=== PATIENT | female | born 1955 | race Caucasian/White ===

== ENCOUNTER → 2017-09-08 | Outpatient (CLI) | payer MEDICARE, BC ==
--- NOTE | 2017-09-08 15:45 | 2DMMODE ---
[place] [address] 2 D/M-MODE ECHOCARDIOGRAM Name: SERGIO ENCARNACION Room: [facility]#: [id number] Admission: 09/08/17 Attend Phys: Sharda Miller Discharge: Date of : 53 Date of Service: 09/08/17 1544 Report #: [id number] THIS REPORT FOR: //name// APPROVED REPORT Study performed: 09/08/2017 14:38:25 EXAM: Comprehensive 2D, Doppler, and color-flow Echocardiogram Patient Location: Out-Patient Status: routine BSA: 1.64 HR: 95 bpm BP: 120/70 mmHg Other Information Study Quality: Fair Indications Murmur 2D Dimensions LVEF(%): 50.74 (>50%) IVSd: 11.79 (7-11mm) LVOT Diam: 19.86 (18-24mm) LVDd: 38.49 mm PWd: 9.19 (7-11mm) Ascending Ao: 28.94 (22-36mm) LVDs: 28.72 (25-40mm) Aortic Root: 28.00 mm [place]'s LVEF: 50.74 % Volumes Left Atrial Volume (Systole) LA ESV Index: 19.30 mL/m2 Aortic Valve AoV Peak Tyrone.: 1.74 m/s AO Peak Gr.: 12.05 mmHg LVOT Max P.97 mmHg AO Mean Gr.: 6.35 mmHg LVOT Mean P.80 mmHg LVOT Max V: 1.58 m/s AO V2 VTI: 26.51 cm LVOT Mean V: 0.87 m/s CULLEN (VTI): 2.66 cm2 LVOT V1 VTI: 22.77 cm Mitral Valve E/A Ratio: 0.87 MV Decel. Time: 198.[place] [address] 2 D/M-MODE ECHOCARDIOGRAM Name: SERGIO ENCARNACION Room: [facility]#: [id number] Admission: 09/08/17 Attend Phys: Sharda Miller Discharge: Date of : 53 Date of Service: 09/08/17 1544 Report #: [id number] MV E Max Tyrone.: 0.64 m/s MV PHT: 57.68 ms MVA (PHT): 3.81 cm2 TDI E/Lateral E': 6.40 E/Medial E': 9.14 Medial E' Tyrone.: 0.07 m/s Lateral E' Tyrone.: 0.10 m/s Pulmonary Valve PV Peak Tyrone.: 1.63 m/s PV Peak Gr.: 10.61 mmHg Tricuspid Valve RAP Estimate: 5.00 mmHg TR Peak Gr.: 43.78 mmHg RVSP: 48.78 mmHg PA Pressure: 48.78 mmHg Left Ventricle The left ventricle is normal size. There is normal LV segmental wall motion. There is normal left ventricular wall thickness. Left ventricular systolic function is normal. The left ventricular ejection fraction is within the normal range. LVEF is 55-60%. The left ventricular diastolic function is normal. Right Ventricle Right ventricle is mildly dilated. The right ventricular systolic function is normal. Atria The left atrium size is normal. The right atrium size is normal. Aortic Valve The aortic valve is normal in structure. No aortic regurgitation is present. There is no aortic valvular stenosis. Mitral Valve The mitral valve is normal in structure. There is no mitral valve regurgitation noted. No evidence of mitral valve stenosis. Tricuspid Valve The tricuspid valve is normal in structure. Mild tricuspid regurgitation. estimated pa pressure 60 mm Hg Pulmonic Valve The pulmonary valve is normal in structure. There [place] [address] 2 D/M-MODE ECHOCARDIOGRAM Name: SERGIO ENCARNACION Room: [facility]#: [id number] Admission: 09/08/17 Attend Phys: Sharda Miller Discharge: Date of : 53 Date of Service: 09/08/17 1544 Report #: [id number] valvular regurgitation. Great Vessels The aortic root is normal in size. IVC is normal in size and collapses with >50% inspiration Pericardium There is no pericardial effusion. <Conclusion> LVEF is 55-60%. Right ventricle is mildly dilated. Mild tricuspid regurgitation. estimated pa pressure 60 mm Hg <ELECTRONICALLY SIGNED> By: Jayme Collier MD, FACC 09/08/17 1544 1544 1544 Jayme Collier MD, FACC /INF
== END ==
LOC: M.ULTRA 14:02 → M.CRD 15:00
DX: I07.1 Rheumatic tricuspid insufficiency (principal); E01.0 Iodine-deficiency related diffuse (endemic) goiter

== ENCOUNTER → 2017-09-26 | Outpatient (CLI) | payer MEDICARE, BC ==
[2017-09-26 12:34] LABS: CREATININE 0.5 mg/dL (0.6-1.3)
== END ==
LOC: M.LAB 09-25 12:00 → M.CT 09-25 13:00 → M.LAB 12:00
PROVIDERS: Nurse Practitioner Family
DX: R10.9 Unspecified abdominal pain (principal); R79.89 Other specified abnormal findings of blood chemistry

== ENCOUNTER 2018-11-18 16:52 | Inpatient (IN) | payer MEDICARE, BC ==
[~2018-11-18] VITALS: Ht 167.6 cm; Wt 91.9 kg
[2018-11-18 16:52] VITALS: BP 136/85
[2018-11-18] MEDS ORDERED: ZYPREXA5 MG PO (16:58)
[2018-11-18] MEDS ORDERED: VITAMIN D5000 UNIT PO (16:59)
[2018-11-18] MEDS ORDERED: BIPOLAR MEDICATION (16:59)
[2018-11-18] MEDS ORDERED: [UNRECOGNIZED DRUG - REMARK] (16:59)
[2018-11-18 17:53] LABS: ABSOLUTE LYMPHOCYTES 1.5 thou/uL (0.8-5.3); ABSOLUTE MONOCYTES 0.6 thou/uL (0.0-1.2); ABSOLUTE NEUTROPHILS 3.1 thou/uL (1.6-8.1); BASOPHILS 0.4 %; EOSINOPHILS 0.3 %; HEMATOCRIT 36.2 % (37.0-47.0); HEMOGLOBIN 11.6 gm/dL (12.0-15.0); LYMPHOCYTES 27.9 %; MCH 23.2 pg (26.0-34.0); MCHC 32.2 g/dL (28.0-37.0); MCV 72.1 fL (80.0-100.0); MONOCYTES 11.1 %; MPV 8.7 fl. (7.2-11.1); NUCLEATED RBCS 0 /100WBC; PLATELET COUNT* 119 thou/uL (150-400); POLYS 60.3 %; RBC 5.02 mil/uL (4.20-5.00); RDW-CV 15.7 % (10.5-14.5); WBC 5.2 thou/uL (4.0-11.0)
[2018-11-18 17:59] LABS: ANION GAP 15 mmol/L (7-16); BUN 14 mg/dL (7-18); CALCIUM 8.4 mg/dL (8.5-10.1); CHLORIDE 107 mmol/L (98-107); CO2 23 mmol/L (21-32); GLUCOSE 98 mg/dL (70-99); POTASSIUM 3.3 mmol/L (3.5-5.1); SODIUM 145 mmol/L (136-145)
[2018-11-18 18:03] LABS: APTT 28.4 Seconds (25.0-31.3); INR 1.1; PROTIME 11.3 Seconds (9.20-11.50)
[2018-11-18 18:04] LABS: BE -0.6 mmol/L (-2 to +3); PCO2 30.9 mmHg (35.0-45.0); PO2 97.1 mmHg (75.0-100.0); pH 7.473 (7.340-7.450)
[2018-11-18 18:10] LABS: URINE BLOOD 1+ (Negative); URINE CLARITY CLEAR; URINE COLOR DARK YELLOW; URINE GLUCOSE-RANDOM NEGATIVE (Negative); URINE KETONES 2+ (Negative); URINE LEUKOCYTES-REFLEX NEGATIVE (Negative); URINE NITRITE-REFLEX NEGATIVE (Negative); URINE PROTEIN 1+ (Negative); URINE SPECIFIC GRAVITY >= 1.030 (1.005-1.030)
[2018-11-18 18:12] LABS: ICTOTEST (BILI CONFIRMATORY) Negative (Negative); URINE BILIRUBIN 2+ (Negative)
[2018-11-18 18:15] LABS: ALBUMIN 3.2 g/dL (3.4-5.0); ALKALINE PHOSPHATASE 92 U/L (46-116); CK-MB MASS 103.6 ng/mL (<0.5-3.6); MAGNESIUM 1.7 mg/dL (1.8-2.4); SGOT 180 U/L (15-37); SGPT 44 U/L (30-65); TOTAL BILIRUBIN 0.9 mg/dL (<0.1-1.0); TOTAL PROTEIN 6.2 g/dL (6.4-8.2); TROPONIN-I LEVEL <0.06 ng/mL (<0.06)
[2018-11-18 18:33] LABS: MUCUS 4-6 Moderate strn/LPF (None Seen)
[2018-11-18 18:34] LABS: HYALINE CASTS 4-10 Moderate /LPF (None Seen); SQUAMOUS 0-3 Few /LPF (0-3); URINE RBC 0-2 Rare /HPF (0-2); URINE WBC-REFLEX 0-5 Rare /HPF (0-5)
[2018-11-18 18:35] LABS: BACTERIA-REFLEX 1-9 Few /HPF (None Seen); CRYSTALS None Seen /LPF (None Seen)
[2018-11-18] MEDS ORDERED: METHIMAZOLE5 MG PO (18:42)
[2018-11-18] MEDS ORDERED: XANAX 0.25 MG0.25 MG PO (18:43)
[2018-11-18] MEDS ORDERED: DEPAKOTE500 MG PO (18:43)
[2018-11-18] MEDS ORDERED: CLONAZEPAM 1 MG1 M1 PO (18:43)
[2018-11-18] MEDS ORDERED: ZYPREXA20 MG PO (18:43)
[2018-11-18] MEDS ORDERED: VITAMIN D35000 UNI1 PO (18:44)
--- NOTE | 2018-11-18 20:18 | NUR ---
IV WAS STARTED PER DR FERGUSON; IV ABOVE R AC, PT WITH L UPPER ARM; MANAGER MOBILITY REFUSE TO USE IV FOR CTA, WILL CONTACT DR MURCIA
[2018-11-18 21:15] VITALS: BP 116/68
[2018-11-19 04:00] VITALS: BP 113/58
[2018-11-19 04:49] LABS: ABSOLUTE EOSINOPHILS 0.2 thou/uL (0.0-0.7); ABSOLUTE LYMPHOCYTES 2.3 thou/uL (0.8-5.3); ABSOLUTE MONOCYTES 0.6 thou/uL (0.0-1.2); ABSOLUTE NEUTROPHILS 2.4 thou/uL (1.6-8.1); BASOPHILS 0.3 %; HEMATOCRIT 31.8 % (37.0-47.0); HEMOGLOBIN 10.1 gm/dL (12.0-15.0); LYMPHOCYTES 41.7 %; MCH 22.8 pg (26.0-34.0); MCHC 31.7 g/dL (28.0-37.0); MCV 71.9 fL (80.0-100.0); MONOCYTES 10.2 %; MPV 8.4 fl. (7.2-11.1); NUCLEATED RBCS 0 /100WBC; PLATELET COUNT* 105 thou/uL (150-400); POLYS 44.8 %; RBC 4.42 mil/uL (4.20-5.00); RDW-CV 15.7 % (10.5-14.5); WBC 5.4 thou/uL (4.0-11.0)
[2018-11-19 05:02] LABS: CREATININE 0.7 mg/dL (0.6-1.3); POTASSIUM 3.6 mmol/L (3.5-5.1)
--- NOTE | 2018-11-19 07:04 | NUR ---
REPORT RECEVED FROM ASHLIE IN ED. PT ARRIVED TO ROOM @ 2135. A+O X 4. NURSING ASSESSMENT COMPLETE. PHOTOS OF INJURYS FROM FALL TAKEN AND PLACED IN CHART- MILD SCRAPES AND ABRASIONS. NO OPEN WOUNDS. GENERALIZED EDEMA NOTED IN FACE (AROUND O2 TUBING) OTHER AREAS. PT GIVEN JELLO AND ENSURE THIS MORNING. TYLENOL GIVEN X 2. ALL LIGHT IN REACH. HOURLY ROUNDING FOR SAFETY.
[2018-11-19 07:45] VITALS: BP 108/59
[2018-11-19 08:02] LABS: HYPOCHROMASIA 2+; MICROCYTES 2+; PLATELET ESTIMATE DECREASED
[2018-11-19 11:12] VITALS: BP 110/66
--- NOTE | 2018-11-19 11:48 | NUR ---
Nutrition: Pt assessed for pressure ulcer risk. No open wounds reported. 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 Rt elbow abrasions. Wt: 175#. Regular diet. RX: MVI. BG 106, albumin 3.2. No nutrition interventions needed at this time. Low risk.
--- NOTE | 2018-11-19 13:10 | NUR ---
INITIAL ASSESSMENT: Pt evaluated for d/c planning needs. Reviewed chart and spoke with nurse and pt. Pt lives alone and was independent with ADL's prior to admission to the hospital. Pt is alert and oriented. Pt said she has no DME and no oxygen at home. Pt said she had home health in the past, but does not recall name of company. Pt plans on returning home on d/c from hospital. Will await input from PT and OT re: recommendations for disposition.
--- NOTE | 2018-11-19 15:52 | EKG ---
[place] [address] ELECTROCARDIOGRAM REPORT Name: SERGIO ENCARNACION Room: [address] ADM IN M.R.#: [id number] Admission: 11/18/18 Attend Phys: Nicholas Dunbar MD Discharge: Date of : 53 Report #: [id number] THIS REPORT FOR: //name// [facility] ED Test Date: 2018-11-18 Test Time: 17:10:55 Pat Name: SERGIO ENCARNACION Department: Room: [facility] Gender: F Public Relations Representative: [place] : 1955 Requested By: Chloé Rose Order Number: [id number] MD: Richard Dumont Measurements Intervals [place] Rate: 94 P: 69 HI: 147 QRS: 40 QRSD: 105 T: -74 QT: 359 QTc: 449 Interpretive Statements Sinus rhythm Incomplete right bundle-branch block Nonspecific T abnormalities, diffuse leads No previous ECG available for comparison Electronically Signed On 11-19-2018 15:52:41 CDT by Richard Dumont [email or web address] <ELECTRONICALLY SIGNED> By: Richard Dumont MD, [facility] 11/19/18 1552 09 09 Richard Dumont MD, FAC /EPI
[2018-11-19 18:57] VITALS: BP 113/70
[2018-11-19 20:00] VITALS: BP 110/72
[2018-11-20] VITALS: BP 112/64
[2018-11-20 04:29] VITALS: BP 116/60
[2018-11-20 05:00] LABS: CREATININE 0.7 mg/dL (0.6-1.3); POTASSIUM 3.3 mmol/L (3.5-5.1)
[2018-11-20 08:00] VITALS: BP 122/71
[2018-11-20 09:40] LABS: HEMATOCRIT 29.9 % (37.0-47.0); HEMOGLOBIN 9.5 gm/dL (12.0-15.0); MCH 23.2 pg (26.0-34.0); MCHC 31.8 g/dL (28.0-37.0); MPV 9.4 fl. (7.2-11.1); RBC 4.09 mil/uL (4.20-5.00); RDW-CV 15.7 % (10.5-14.5)
[2018-11-20 12:00] VITALS: BP 127/88
--- NOTE | 2018-11-20 15:14 | NUR ---
CONTINUE TO FOLLOW, DR RECOMMENDING SNF. DISCUSSED WITH PT AND BROTHER OVER THE PHONE. CHOSE [facility] AND IF NOT THERE, TRY [facility]. ANTICIPATE DC IN 1-2 DAYS. CALLED AND FAXED REFERRAL TO [facility], AWAIT CALL BACK
[2018-11-20 16:17] VITALS: BP 120/72
--- NOTE | 2018-11-20 18:47 | NUR ---
PT VSS, NSR ON TELE. PT IS A&O X4, BUT HAS A FLAT AFFECT. PT IS HIGH FALL RISK DUE TO FALL AT HOME ASSOCIATED WITH EXTREME LOWER EXTREMITY WEAKNESS. PT AMBULATES IN ROOM WITHOUT COMPLICATION (STAND BY ASSIST). PT IS INCONTINENT OF BLADDER. GRAVES DISEASE IN HISTORY. TREMORS REPORTED BUT NOT OBSERVED TODAY. POSSESSIONS AND CALL LIGHT WITHIN REACH. PT SPEND MAJORITY OF THE DAY RELAXING IN CHAIR.
--- NOTE | 2018-11-20 19:07 | NUR ---
THIS RN HAS REVIEWED AND AGREES WITH THE ASSESSMENT AND CHARTING OF MATHIEU RO.
[2018-11-20 19:50] VITALS: BP 127/60
[2018-11-21] VITALS: BP 127/64
[2018-11-21 04:00] VITALS: BP 100/60
[2018-11-21 07:30] VITALS: BP 123/69
[2018-11-21] MEDS ORDERED: MELATONIN1 MG PO (10:00)
[2018-11-21] MEDS ORDERED: TYLENOL325 MG PO (10:00)
--- NOTE | 2018-11-21 10:00 | NUR ---
ORDERS RECEIVED FOR DC TO SNF. CALLED AND FAXED ORDERS TO [facility]. MET WITH PT AND CALLED BROTHER/SREE TO GIVE NUMBER AND ADDRESS OF FACILITY. SPOKE WITH THELMA/MAKENZIE, SHE ARRANGED W/C VAN FOR 1130-01. CHART COPIED AND RN GIVEN NUMBER FOR REPORT
[2018-11-21 10:01] VITALS: BP 123/69
--- NOTE | 2018-11-21 12:45 | NUR ---
RECEIVED DISCHARGE ORDERS PER DR ODELL. IV DISCONTINUED. RIVER CROSSING SUPERVISOR REMOVED. REPORT CALLED TO THE [facility]. ALL PATIENTS BELONGINGS ARE PACKED AND LEAVING WITH THE PATIENT. SHE IS LEAVING VIA WHEELCHAIR ACCOMPANIED BY WHEELCHAIR [facility]AN TRANSPORTATION. NO QUESTIONS/CONCERNS AT TIME OF DISCHARGE.
--- NOTE | 2018-11-27 09:32 | EEG ---
[address] [address] EEG STUDY REPORT Name: SERGIO ENCARNACION Room: [address]#: [id number] Admission: 11/18/18 Attend Phys: Nicholas Dunbar MD Discharge: 11/21/18 Date of : 53 Report #: [id number] THIS REPORT FOR: //name// CC: AJIT LIZANDRO Dunbar DATE OF SERVICE: 11/19/2018 This patient had an episode where she passed out. She was on the floor for a long period of time. EEG was done by placing the electrodes by standard 10-20 system of electrode placement. Both referential and sequential montages were used for recording. Background activity in this patient's EEG is about 9 Hz and 30 microvolts. There is a symmetrical activity. The patient became drowsy and that is associated with bilateral slowing and vertex sharp waves. Photic stimulation was unremarkable. Throughout the record, no active epileptiform activity was noticed. IMPRESSION: This patient's EEG demonstrates some intermixed slowing on both sides. That is a nonspecific abnormality, which can occur with drowsiness, effect of psychotropic medication, etc. Clinical correlation is recommended. <ELECTRONICALLY SIGNED> By: Saurav Sanchez MD 11/27/18 0932 0832 [id number] Sanchez MD /nt
--- NOTE | 2018-11-27 09:32 | CON ---
[address] [address] CONSULTATION Name: SERGIO ENCARNACION Room: [address] IN .R.#: [id number] Admission: 11/18/18 Attend Phys: Nicholas Dunbar MD Discharge: 11/21/18 Date of : 53 Report #: [id number] THIS REPORT FOR: //name// CC: AJIT Dunbar DATE OF SERVICE: 11/19/2018 HISTORY OF PRESENT ILLNESS: This is a 63-year-old female patient who was admitted with pretty unusual history. She said she fell. It is not clear why she fell. She is on multiple psychotropic medications, but she said she was taking it properly. But then, she was unable to get up for a long period of time. She was weak. She has become much stronger since that time. She does not know if she is back to her baseline. REVIEW OF SYSTEMS: Indicate that this patient had generalized weakness. She thinks her memory is at her baseline. She does have some psychiatric issues including bipolar. She does have a history of hypothyroidism and Graves' disease. She denies any new eye, ENT, cardiac, respiratory, GI, , musculoskeletal, constitutional, dermatological, hematological, psychiatric, throat, allergic symptom associated with the present symptomatology. PAST MEDICAL HISTORY: Positive for psychiatric problem. FAMILY HISTORY: Negative for any seizure disorder. SOCIAL HISTORY: She denies the abuse of any alcohol. PHYSICAL EXAMINATION: Indicates she is alert, she is responsive, she can follow simple commands. She knows what month it is, but could not tell me the date. She knows what hospital she is in. Her speech looks intact. Cranial nerve examination 2-12 looks mostly unremarkable. Strength, sensation, reflexes, and tone are symmetrical. There is no kfxkuv-[id number] abnormality. I could not look at the fundus. Pulses are difficult to feel. She has no edema, cyanosis, or jaundice. Cardiac examinations appear unremarkable. No respiratory difficulty or rhonchi was noticed. LABORATORY DATA: CPK was 9300. She had a CT scan of the head, which appear unremarkable. IMPRESSION: This patient has a pretty unusual history. I agree that most likely etiology for the patient's symptoms is her psychotropic medication. Still it is unusual to lay on the floor for such a long time after the episode. Because of that, it is desirable to exclude any other pathology. For STARTER CUP POWDER MIXER purposes, I will get an MRI and an EEG done. She will also need some systemic workup, which I will defer to you. We will see [place] [address] CONSULTATION Name: SERGIO ENCARNACION Room: [address]#: [id number] Admission: 11/18/18 Attend Phys: Nicholas Dunbar MD Discharge: 11/21/18 Date of : 53 Report #: [id number] follow up with you. I am answering service telephone operator just today, but some of the neurologist should follow up this patient from tomorrow. <ELECTRONICALLY SIGNED> By: Saurav Sanchez MD 11/27/18 0932 0909 [id number] Sanchez MD /nt
== END 2018-11-21 12:46 | DRG 557 ==
LOC: M.ERS 16:52 → M.TBA-ER 18:10 → M.2W 18:10
PROVIDERS: Internal Medicine; Personal Emergency Response Attendant; ADMIT Family Medicine
DX: M62.82 Rhabdomyolysis (principal); G92 Toxic encephalopathy; E87.2 Acidosis; F31.9 Bipolar disorder, unspecified; R53.81 Other malaise; E05.00 Thyrotoxicosis with diffuse goiter without thyrotoxic crisis or storm; E87.6 Hypokalemia; E83.42 Hypomagnesemia; T43.8X5A Adverse effect of other psychotropic drugs, initial encounter; Z79.899 Other long term (current) drug therapy; Z88.8 Allergy status to other drugs, medicaments and biological substances; Y92.89 Other specified places as the place of occurrence of the external cause

== ENCOUNTER 2019-01-16 23:34 | Inpatient (IN) | payer MEDICARE, BC ==
[~2019-01-16] VITALS: Ht 167.6 cm; Wt 80.3 kg
[~2019-01-16 23:34] MED LIST: BIPOLAR MEDICATION; CLONAZEPAM 1 MG1 M1 PO; DEPAKOTE500 MG PO; MELATONIN1 MG PO; METHIMAZOLE5 MG PO; TYLENOL325 MG PO; VITAMIN D35000 UNI1 PO; VITAMIN D5000 UNIT PO; XANAX 0.25 MG0.25 MG PO; ZYPREXA20 MG PO; ZYPREXA5 MG PO; [UNRECOGNIZED DRUG - REMARK]
[2019-01-16 23:41] VITALS: BP 153/99
[2019-01-17 00:12] LABS: ABSOLUTE EOSINOPHILS 0.1 thou/uL (0.0-0.7); ABSOLUTE LYMPHOCYTES 2.2 thou/uL (0.8-5.3); ABSOLUTE MONOCYTES 0.2 thou/uL (0.0-1.2); ABSOLUTE NEUTROPHILS 1.5 thou/uL (1.6-8.1); BASOPHILS 0.8 %; EOSINOPHILS 1.9 %; HEMATOCRIT 37.6 % (37.0-47.0); HEMOGLOBIN 12.1 gm/dL (12.0-15.0); LYMPHOCYTES 54.3 %; MCH 22.8 pg (26.0-34.0); MCHC 32.1 g/dL (28.0-37.0); MCV 71.2 fL (80.0-100.0); MONOCYTES 5.9 %; MPV 8.5 fl. (7.2-11.1); NUCLEATED RBCS 0 /100WBC; PLATELET COUNT* 150 thou/uL (150-400); POLYS 37.1 %; RBC 5.29 mil/uL (4.20-5.00); RDW-CV 14.3 % (10.5-14.5); WBC 4.1 thou/uL (4.0-11.0)
[2019-01-17 00:20] LABS: CALCIUM 9.1 mg/dL (8.5-10.1); CREATININE 0.9 mg/dL (0.6-1.3)
[2019-01-17 00:31] LABS: ALBUMIN 3.1 g/dL (3.4-5.0); TOTAL BILIRUBIN 0.2 mg/dL (<0.1-1.0); TOTAL PROTEIN 6.3 g/dL (6.4-8.2)
[2019-01-17 01:50] VITALS: BP 134/74
[2019-01-17 02:15] VITALS: BP 126/81
[2019-01-17 09:02] VITALS: BP 99/65
[2019-01-17 12:18] LABS: URINE BILIRUBIN NEGATIVE (Negative); URINE BLOOD NEGATIVE (Negative); URINE CLARITY CLEAR; URINE COLOR YELLOW; URINE GLUCOSE-RANDOM NEGATIVE (Negative); URINE KETONES NEGATIVE (Negative); URINE LEUKOCYTES-REFLEX NEGATIVE (Negative); URINE NITRITE-REFLEX NEGATIVE (Negative); URINE PROTEIN NEGATIVE (Negative); URINE SPECIFIC GRAVITY 1.025 (1.005-1.030); URINE UROBILINOGEN 0.2 E.U./dl (0.2-1.0)
[2019-01-17 16:00] VITALS: BP 146/70
[2019-01-17 17:25] LABS: AMP/METHAMP Negative (Negative); BARBITURATES Negative (Negative); BENZODIAZEPINES Negative (Negative); COCAINE Negative (Negative); METHADONE Negative (Negative); OPIATES Negative (Negative); PCP Negative (Negative); THC Negative (Negative)
[2019-01-17 20:40] VITALS: BP 136/81
[2019-01-18 04:18] LABS: HEMATOCRIT 33.5 % (37.0-47.0); HEMOGLOBIN 10.7 gm/dL (12.0-15.0); MCH 22.9 pg (26.0-34.0); MCHC 31.9 g/dL (28.0-37.0); MCV 71.7 fL (80.0-100.0); MPV 8.4 fl. (7.2-11.1); NUCLEATED RBCS 0 /100WBC; PLATELET COUNT* 126 thou/uL (150-400); RBC 4.67 mil/uL (4.20-5.00); RDW-CV 14.8 % (10.5-14.5); WBC 5.2 thou/uL (4.0-11.0)
[2019-01-18 04:57] LABS: CALCIUM 7.8 mg/dL (8.5-10.1); CREATININE 0.9 mg/dL (0.6-1.3); POTASSIUM 3.8 mmol/L (3.5-5.1)
[2019-01-18 05:22] LABS: ABSOLUTE EOSINOPHILS 0.1 thou/uL (0.0-0.7); ABSOLUTE LYMPHOCYTES 3.6 thou/uL (0.8-5.3); ABSOLUTE MONOCYTES 0.4 thou/uL (0.0-1.2); ABSOLUTE NEUTROPHILS 1.1 thou/uL (1.6-8.1); ATYPICAL LYMPHS 2 %; PLATELET ESTIMATE DECREASED
[2019-01-18 05:23] LABS: ANISOCYTOSIS 1+; HYPOCHROMASIA 2+; MICROCYTES 2+; POIKILOCYTOSIS 1+
[2019-01-18 08:07] VITALS: BP 132/67
[2019-01-18 11:01] VITALS: BP 132/67
--- NOTE | 2019-01-18 11:31 | EKG ---
[place] [address] ELECTROCARDIOGRAM REPORT Name: SERGIO ENCARNACION Room: [address] ADM IN .R.#: [id number] Admission: 01/17/19 Attend Phys: Jerome Bhatt MD Discharge: Date of : 53 Report #: [id number] THIS REPORT FOR: //name// [facility] ED Test Date: 2019-01-16 Test Time: 23:40:46 Pat Name: SERGIO ENCARNACION Department: Room: [facility] Gender: F Agricultural Service Technician: [place] : 1955 Requested By: Sathya Leavitt Order Number: [id number] MD: Jayme Collier Measurements Intervals [place] Rate: 74 P: 45 VA: 155 QRS: 17 QRSD: 85 T: 31 QT: 367 QTc: 408 Interpretive Statements Sinus rhythm Probable left atrial enlargement Compared to ECG 11/18/2018 17:10:55 T-wave abnormality no longer present Electronically Signed On 01-18-2019 11:31:24 FILM PROCESS OPERATOR by Jayme Collier [email or web address] <ELECTRONICALLY SIGNED> By: Jayme Collier MD, [facility] 01/18/19 1131 2340 2340 Jayme Collier MD, [facility] /EPI
== END 2019-01-18 15:30 | disposition home health service (06) | DRG 71 ==
LOC: M.ERS 23:34 → M.ORTHSURG 01-17 01:01 → M.TBA-ER 01-17 01:01 → M.ORTHSURG 01-17 02:09
PROVIDERS: Emergency Medicine; ADMIT Internal Medicine
DX: G93.41 Metabolic encephalopathy (principal); E44.1 Mild protein-calorie malnutrition; E05.90 Thyrotoxicosis, unspecified without thyrotoxic crisis or storm; F31.9 Bipolar disorder, unspecified; F41.9 Anxiety disorder, unspecified; I95.9 Hypotension, unspecified; E86.0 Dehydration; Z88.8 Allergy status to other drugs, medicaments and biological substances; Z68.28 Body mass index [BMI] 28.0-28.9, adult; Z79.899 Other long term (current) drug therapy